=== PATIENT | male | born 1965 | race Hispanic/Latino ===

== ENCOUNTER → 2021-08-13 | Outpatient (CLI) | payer OTHER | END | disposition home or self-care (01) | LOC: RAH 12:36 | PROVIDERS: ATTEND Internal Medicine Cardiovascular Disease | DX: R07.9 Chest pain, unspecified (principal) | CPT/HCPCS: 93306 ==

== ENCOUNTER → 2021-09-15 | Outpatient (CLI) | payer OTHER ==
[~2021-09-15] MED LIST: REGADENOSON 0.4 MG/5 ML PF SYG IVP SCH
== END | disposition home or self-care (01) ==
LOC: SHCH 08:43
PROVIDERS: ATTEND Internal Medicine Cardiovascular Disease
DX: R07.9 Chest pain, unspecified (principal)
CPT/HCPCS: 78452; 93017; 96374; A9500 ×2; J2785

== ENCOUNTER 2023-01-23 10:23 | Emergency (ER) | payer OTHER, BC ==
[~2023-01-23] VITALS: Ht 162.6 cm; Wt 110.2 kg
[2023-01-23 11:59] LABS: BASOPHILS # (AUTO) 0.03 K/uL (0.00-0.20); BASOPHILS % (AUTO) 0.4 % (0.0-5.0); EOSINOPHILS # (AUTO) 0.13 K/uL (0.00-0.70); EOSINOPHILS % (AUTO) 1.6 % (0.0-8.0); HEMATOCRIT 46.1 % (42-54); IMMATURE GRANULOCYTE ABSOLUTE 0.02 K/uL (0-1); LYMPHOCYTES % (AUTO) 37.9 % (21.0-51.0); MEAN CORPUSCULAR HEMOGLOBIN 31.6 pg (27.0-33.0); MEAN CORPUSCULAR HGB CONC 33.4 g/dL (32.0-36.0); MEAN CORPUSCULAR VOLUME 94.5 fL (79-99); MONOCYTES # (AUTO) 0.7 K/uL (0.1-1.0); MONOCYTES % (AUTO) 8.5 % (3.0-13.0); NEUTROPHILS # (AUTO) 4.1 K/uL (1.8-7.7); NEUTROPHILS % (AUTO) 51.3 % (40.0-77.0); PLATELET COUNT (AUTO) 215 K/uL (130-400); RED BLOOD CELL COUNT(AUTO) 4.88 MIL/uL (4.50-6.20); RED CELL DISTRIBUTION WIDTH 13.4 % (11.0-15.5); WHITE BLOOD COUNT (AUTO) 7.9 K/uL (4.8-10.8)
[2023-01-23] MEDS ORDERED: DiphenhydrAMINE HCL 50 MG/ML VIAL IV ONE (12:00)
[2023-01-23] MEDS ORDERED: 0.9%NACL 1000ML 1,000 ML IV ONE (12:00)
[2023-01-23] MEDS ORDERED: ACETAMINOPHEN 325 MG TAB PO ONE (12:00)
[2023-01-23] MEDS ORDERED: ONDANSETRON 4MG INJ IVP ONE (12:00)
[2023-01-23] MEDS ORDERED: MORPHINE 2 MG SYG IVP ONE (12:00)
[2023-01-23 12:15] LABS: CREATININE 0.9 mg/dL (0.5-1.5); POTASSIUM 5.1 mmol/L (3.5-5.1)
[2023-01-23 12:24] LABS: ALBUMIN 3.6 g/dL (3.5-5.0); BILIRUBIN,TOTAL 0.3 mg/dL (0.2-1.0); TOTAL PROTEIN, SERUM 7.6 g/dL (6.0-8.3)
[2023-01-23 12:33] LABS: APPEARANCE,URINE CLEAR (CLEAR); BILIRUBIN,URINE NEGATIVE (NEGATIVE); COLOR,URINE LIGHT-YELLOW (YELLOW); GLUCOSE, URINE (UA) NEGATIVE (NEGATIVE); KETONES,URINE NEGATIVE (NEGATIVE); LEUKOCYTE ESTERASE ,URINE NEGATIVE Leu/uL (NEGATIVE); NITRATE,URINE NEGATIVE (NEGATIVE); OCCULT BLOOD,URINE NEGATIVE (NEGATIVE); PH,URINE 7.5 (5.0-8.0); PROTEIN,URINE NEGATIVE (NEGATIVE); UROBILINOGEN,URINE 0.2 mg/dL (0.2-1.0)
[2023-01-23 12:34] LABS: ADD UA MICROSCOPIC NO
[2023-01-23 12:40] LABS: ABG BASE EXCESS -3.7 mmol/L (-2.0-3.0); ABG HCO3 21.3 mmol/L (21.0-28.0); ABG PCO2 39 mmHg (35-48); CARBON MONOXIDE 2.4; HHb 2.9; PO2, ARTERIAL BG 88.8 mmHg (83.0-108.0); VENT MODE, BG 2LNC (ROOM AIR)
[2023-01-23] MEDS ORDERED: ONDA-104 PO (12:57)
[2023-01-23] MEDS ORDERED: ACET-66 PO (12:57)
[2023-01-23 13:13] VITALS: BP 131/74; PULSE 84; RESP 18; O2SAT 100
== END 2023-01-23 13:38 | disposition home or self-care (01) ==
LOC: EDH 10:23
DX: R51.9 Headache, unspecified (principal); R11.0 Nausea; E11.9 Type 2 diabetes mellitus without complications; F17.210 Nicotine dependence, cigarettes, uncomplicated; K21.9 Gastro-esophageal reflux disease without esophagitis; Z90.49 Acquired absence of other specified parts of digestive tract; Z79.899 Other long term (current) drug therapy; Z88.6 Allergy status to analgesic agent; V29.888A Rider (driver) (passenger) of other motorcycle injured in other specified transport accidents, initial encounter; Y93.I9 Activity, other involving external motion; Y92.488 Other paved roadways as the place of occurrence of the external cause; Y99.8 Other external cause status
CPT/HCPCS: 99285; 96374; 70450; 71045; 96375; 96361; 82947; 82435; 84132; 84295; 82550; 84484; 80053; 82803; 85025; 85018; 82375; 83605 ×2; 81003; 36415; 93005; 36600; J1200; J2270; J7030; J2405